=== PATIENT | male | born 1990 | race Two or more races ===

== ENCOUNTER 2016-07-11 17:59 | Emergency (ER) | payer OTHER ==
[2016-07-11] MEDS ORDERED: HYDROCODONE/ACETAMINOPHEN 5/325MG TABLET ONE (19:23)
--- NOTE | 2016-07-11 19:29 | RAD ---
CHEST 2 VIEWS HISTORY: Left-sided rib and chest pain after falling. Frontal and lateral chest radiographs dated 07/11/2016. COMPARISON: None. FINDINGS: FOCAL AIRSPACE OPACITY: No gross airspace consolidation. PLEURAL EFFUSION: None. CARDIOMEDIASTINAL SILHOUETTE: Nonenlarged. PNEUMOTHORAX: None identified. OSSEOUS STRUCTURES: And No obvious displaced rib fracture. IMPRESSION: No pleural effusion, pneumothorax, or obvious displaced rib fracture. If there is continued rib pain, consider dedicated series.
== END 2016-07-11 18:02 | disposition home or self-care (01) ==
LOC: ED 17:59
DX: S29.9XXA Unspecified injury of thorax, initial encounter (principal); W01.198A Fall on same level from slipping, tripping and stumbling with subsequent striking against other object, initial encounter; Y93.01 Activity, walking, marching and hiking; Y92.89 Other specified places as the place of occurrence of the external cause; Y99.0 Civilian activity done for income or pay
CPT/HCPCS: 71020; 99283 ×2; A9270